=== PATIENT | female | born 1965 | race Caucasian/White ===

== ENCOUNTER 2018-07-19 02:18 | Emergency (ER) | payer MEDICAID ==
[~2018-07-19] VITALS: Ht 180.3 cm; Wt 95.7 kg
[~2018-07-19 02:18] MED LIST: IBU800T
[2018-07-19 02:30] VITALS: BP 100/52
[2018-07-19 04:37] LABS: Basophils # (auto) 0.1 uL; Basophils % (auto) 0.5 % (0.0-2.0); Eosinophils # (auto) 0.1 uL; Hemoglobin 10.8 g/dL (12.2-16.2)
[2018-07-19 04:39] LABS: Eosinophils % (auto) 0.6 % (0.0-7.0); Hematocrit 33.6 % (36.0-46.0); Lymphocytes # (auto) 1.6 uL; Lymphocytes % (auto) 16.4 % (10.0-50.0); Mean Corpuscular Hemoglobin 24.1 pg (28.0-32.0); Mean Corpuscular Hgb Conc. 32.1 g/dL (32.0-36.0); Mean Corpuscular Volume 75.1 fL (80.0-100.0); Monocytes # (auto) 0.7 uL; Monocytes % (auto) 6.9 % (0.0-12.0); Neutrophils # (auto) 7.4 uL; Neutrophils % (auto) 75.6 % (37.0-80.0); Platelet Count (auto) 245 10^3/uL (140-450); Red Blood Cells 4.47 10^6/uL (4.0-5.20); Red Cell Distribution Width 15.7 % (11.8-14.3); White Blood Cell 9.7 10^3/uL (4.4-10.8)
[2018-07-19 04:52] LABS: Albumin 3.6 g/dL (3.4-5.0); Anion Gap 8 (5-15); Blood Urea Nitrogen 14 mg/dL (7-18); Calcium 8.1 mg/dL (8.5-10.1); Carbon Dioxide 24 mmol/L (21-32); Chloride 109 mmol/L (98-107); Glucose 103 mg/dL (74-106); Magnesium 2.4 mg/dL (1.6-2.6); Potassium 3.5 mmol/L (3.5-5.1); Sodium 141 mmol/L (136-145)
[2018-07-19 04:54] LABS: Alanine Aminotransferase 28 U/L (13-56); Aspartate Aminotransferase 20 U/L (15-37); BUN/Creatinine Ratio 16.3; GFR African American 89 mL/min; GFR Non-African American 74 mL/min
[2018-07-19 05:00] LABS: Alkaline Phosphatase 70 U/L (45-117); Bilirubin, Total 0.6 mg/dL (0.2-1.0)
== END 2018-07-19 07:05 | disposition home or self-care (01) ==
LOC: EDBD 02:18 → ER 02:23
DX: R07.89 Other chest pain (principal); I10 Essential (primary) hypertension; M19.90 Unspecified osteoarthritis, unspecified site; Z90.49 Acquired absence of other specified parts of digestive tract; Z88.6 Allergy status to analgesic agent
CPT/HCPCS: 36415; 71046; 80053; 83735; 83880; 84443; 84484; 85025; 93005

== ENCOUNTER 2025-02-17 10:58 | Inpatient (IN) | payer MEDICAID ==
[~2025-02-17] VITALS: Ht 180.3 cm; Wt 130.0 kg
--- NOTE | 2025-02-17 11:07 | ED.PDOC ---
HPI Comments HPI: Initial Vitals BP: HR: RR: O2 Sat: Temp: Past Medical history: Hypertension, hyperlipidemia, Past Surgical history: Cholecystectomy, breast lump resection, Medications: Social History: Denies smoking, ETOH, and drug use. Allergies: NKDA HPI: Poor Historian. 59-year-old female presents to emergency depart for evaluation of left-sided chest pain discomfort pulsating in nature that is intermittent lasts for few minutes and resolved spontaneously. This happens at rest. She has been having this over the course of a week but worse today. Denies any other associated symptoms. Symptoms are nonradiating. Denies any family history of coronary artery disease. REVIEW OF SYSTEMS: CONSTITUTIONAL: Denies acute: fever, diaphoresis, chills, generalized weakness. HEAD: Denies acute: headache, photophobia Eyes: Denies acute: Double vision, vision loss, eye pain, eye discharge. EARS: Denies acute: tinnitus, hearing loss, ear discharge, ear pain, THROAT: Denies acute: sore throat, swelling, difficulty swallowing , pain with swallowing, change in voice. NECK: Denies acute: neck pain, neck swelling, stiff neck. HEART: Denies acute : palpitations, LUNGS: Denies acute: SOB, wheezing, cough, hemoptysis ABDOMEN: Denies acute: abdominal pain, Nausea, Vomiting, diarrhea, melena , hematemesis, hematochezia SKIN: Denies acute: rash, redness, lesions, itchiness. EXTREMITIES: Denies acute: calf pain, numbness, tingling, weakness, denies pain in extremity. Denies acute: Low back pain. Neuro: Denies acute: focal neurological deficit, motor or sensory focal neurological deficit, tremors, seizure like activity, confusion, dizziness, change in mental status, loss of bowel or bladder function, cauda equina like symptoms. : Denies acute: dysuria, hematuria, flank pain, increase in urinary frequency. PSYCH: Denies acute: hallucination, suicidal ideation, homicidal ideation. FEMALE: Denies acute: abnormal vaginal bleeding, foul odor, unusual discharge. PHYSICAL EXAM: General: ---mild-----acute distress, awake and alert. Head: normocephalic, atraumatic. Neck: supple, trachea is midline, no swelling. Throat: Normal phonation. Eyes:, no erythema, no purulent discharge, no proptosis, no icterus. Heart: regular rate, regular rhythm, no significant murmur appreciated. Lungs: no apparent respiratory distress, Able to speak in full sentences. No wheezing, no rhonchi, no crackles. No stridors Clear to auscultation bilaterally. Abdomen: non tender to palpation, non distended, soft, no guarding, no rebound, + bowel sounds. Obese Neuro: Awake, Alert, oriented to name, self, situation, follows commands GCS=15. Speech is normal. Skin: no petechia, no purpura, no cyanosis, non-pale, not jaundice. Lower extremities: --no - Pitting edema no deformity, no focal swelling, no calf TTP. Makes eye contact. moves all four extremities. Face: no apparent facial droop. Ambulating in the ED independently. ED COURSE: DISCLAIMER: This medical document was created using an electronic medical record system with voice recognition software and computerized dictation system. Although this document has been carefully reviewed, there might still be some phonetic and typographical errors. Occasional wrong-word or "sound-alike" substitutions may have occurred due to the inherent limitations of voice recognition software. These areas are purely typographical due to imperfections of the software programs and do not reflect any compromise in the patient's medical care. Please read the chart carefully and recognize, using context, where these substitutions have occurred. Chief Complaint: Chest Pain Time Seen by MD: 11:00 Primary Care Provider: THEA Reviewed Notes: Nurses Notes, Medications, Allergies Allergies: Coded Allergies: Morphine (Verified Allergy, Severe, 03/30/15) SEVERE RASH Home Meds Reported Medications Hydrocodone-Acetaminophen (Hydrocodone Bitartrate/AC 5-325 mg) 1 Tab Tab, 1 TAB PO Q6HP PRN for PAIN SCALE 7 THRU 10, TAB 02/18/25 Atorvastatin Calcium (ATORVASTATIN CALCIUM) 40 Mg Tab, 1 TAB PO HS, #30 TAB 5 Refills 02/18/25 Losartan Potassium (Losartan Potassium) 50 Mg Tab, 50 MG PO DAILY for 30 Days, MG 02/18/25 Tolterodine Tartrate (Tolterodine Tartrate ER) 2 Mg Cap, 1 CAP PO DAILY 02/17/25 Ibuprofen Micronized (Motrin) 800 Mg Tb 04/26/10 Information Source: Patient Mode of Arrival: Ambulatory Past Medical History PAST MEDICAL HISTORY: Arthritis, HTN Surgical History: Cholecystectomy, 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 Was a procedure done?: No CP Differential Dx Differential Diagnosis: N/A Differential Diagnosis: Other (Ddx include but not limitied to gastritis, musculoskeletal pain, radiculopathy, atypical chest pain, dissection, aneurysm, ACS, unstable angina, hiatal hernia, GERD, anxiety, costochondritis, PE, pneumothroax, neoplasm, cardiac ischemia, drug abuse, anemia.) X-Ray, Labs, Meds, VS Vital Signs Date Time Temp Pulse Resp B/P (MAP) Pulse Ox O2 Delivery O2 Flow Rate FiO2 02/17/25 15:30 Room Air* 0 21 02/17/25 15:24 98.0 95 16 137/85 (102) 97 98.0 02/17/25 12:07 91 02/17/25 11:20 95 02/17/25 11:00 98.2 100 18 157/98 94 98.2 02/17/25 10:59 95 Lab Test 02/17/25 14:27 02/17/25 12:29 02/17/25 11:32 02/17/25 11:23 Range/Units Troponin I High Sensitivity < 3 L < 3 L < 3 L </=34 ng/L Thyroid Stimulating Hormone (TSH) 4.01 0.55-4.78 uIU/mL Free Thyroxine (T4) Calculated 1.48 0.89-1.76 ng/dL Hemoglobin A1c 5.5 <5.7 % A1C White Blood Count 6.8 4.4-10.8 10^3/uL Red Blood Count 5.91 H 4.0-5.20 10^6/uL Hemoglobin 17.1 H 12.2-16.2 g/dL Hematocrit 49.1 H 36.0-46.0 % Mean Corpuscular Volume 83.0 80.0-100.0 fL Mean Corpuscular Hemoglobin 28.9 28.0-32.0 pg Mean Corpuscular Hemoglobin Concent 34.8 32.0-36.0 g/dL Red Cell Distribution Width 14.3 11.8-14.3 % Platelet Count 219 140-450 10^3/uL Mean Platelet Volume 9.4 6.9-10.8 fL Neutrophils (%) (Auto) 65.4 37.0-80.0 % Lymphocytes (%) (Auto) 27.6 10.0-50.0 % Monocytes (%) (Auto) 5.5 0.0-12.0 % Eosinophils (%) (Auto) 1.0 0.0-7.0 % Basophils (%) (Auto) 0.5 0.0-2.0 % Neutrophils # (Auto) 4.4 1.6-8.6 10 ^3/uL Lymphocytes # (Auto) 1.9 0.4-5.4 10 ^3/uL Monocytes # (Auto) 0.4 0-1.3 10 ^3/uL Eosinophils # (Auto) 0.1 0-0.8 10 ^3/uL Basophils # (Auto) 0 0-0.2 10 ^3/uL Nucleated Red Blood Cells 0.2 % D-Dimer, Quantitative < 0.19 0.0-0.49 mg/L FEU Sodium Level 141 136-145 mmol/L Potassium Level 4.0 3.5-5.1 mmol/L Chloride Level 103 98-107 mmol/L Carbon Dioxide Level 27 20-31 mmol/L Anion Gap 11 5-15 Blood Urea Nitrogen 19 9-23 mg/dL Creatinine 1.04 H 0.550-1.02 mg/dL Glomerular Filtration Rate Calc 62 >90 mL/min BUN/Creatinine Ratio 18.3 10.0-20.0 Serum Glucose 98 74-106 mg/dL Calcium Level 10.1 8.7-10.4 mg/dL Total Bilirubin 1.0 0.2-1.0 mg/dL Aspartate Amino Transferase (AST) 22 13-40 U/L Alanine Aminotransferase (ALT) 32 7-40 U/L Alkaline Phosphatase 91 46-116 U/L Total Protein 7.8 5.7-8.2 g/dL Albumin 4.9 H 3.2-4.8 g/dL [facility] [id number] [facility] [address] Ph: [phone] DIAGNOSTIC IMAGING Diagnostic Imaging Report : [id number] Signed PATIENT: BAMBI SHEPPARD ACCT: [id number] UNIT: [id number] : 1965 LOC: ER ROOM / BED: / AGE / SEX: 59 / F ADM STATUS: REG ER SERVICE 1107 ORDERING PHYSICIAN: JOVANA DIOP DO PROCEDURE(s): CXRP - CHEST PORTABLE REASON: L CHEST PAIN ORDER NUMBER(s): [id number], ACCESSION NUMBER(s): [id number] EXAM: XY CHEST PORTABLE HISTORY: L CHEST PAIN COMPARISON: None TECHNIQUE: Portable AP view of the chest was performed. FINDINGS: No pneumothorax, consolidative infiltrates, or pulmonary edema. The heart is not enlarged. There is abundant overlying adipose tissue. There is slight thoracic dextroscoliosis. No fractures are identified about the bony thorax. IMPRESSION: Obesity without evidence of acute intrathoracic process. ATED BY: SUDARSHAN ZAMARRIPA MD DICTATED DATE/TIME: 02/17/25 114 SIGNED BY: SUDARSHAN ZAMARRIPA MD SIGNED DATE/TIME: 02/17/25 1145 CC: Time of 1ST Reevaluation: 11:30 Reevaluation 1ST: Unchanged Patient Education/Counseling: Diagnosis, Treatment, Prognosis Family Education/Counseling: No Family Present Comments MDM: patient presented with the above HPI.--chest pain----workup was initiated. patient was found with the above mentioned diagnosis. the following medications were ordered: please refer to order lists of meds and tests obtained by myself Dr. Diop. Patient ED course and VS have been stabilized. Patient has been reassessed in the ED and remained in a stable condition. Pertinent incidental findings were discussed with the patient and/or family. Patient/family voices understanding and is agreeable with plan. Patient has been observed in the ED adequate length of time to insure improvement/stability. Escalation of care considered: Consideration of escalation to observation or admission Patient was ADMITTED to the medicine team for further evaluation and treatment of their presentation. All the reports of any imaging studies that were ordered by myself were reviewed by myself. SEPSIS Sepsis Screen Physician Orders Electrocardigram (02/17/25 11:00) Electrocardigram (02/17/25 11:05) Curve Cleaner (02/17/25 ) Chest Portable (02/17/25 11:07) Vital Signs Date Time Temp Pulse Resp B/P (MAP) Pulse Ox O2 Delivery O2 Flow Rate FiO2 02/17/25 15:30 Room Air* 0 21 02/17/25 15:24 98.0 95 16 137/85 (102) 97 98.0 02/17/25 12:07 91 02/17/25 11:20 95 02/17/25 11:00 98.2 100 18 157/98 94 98.2 02/17/25 10:59 95 Laboratory Tests Test 02/17/25 11:23 White Blood Count 6.8 10^3/uL (4.4-10.8) Departure 1 Departure Time of Disposition: 13:31 Impression: Primary Impression: Chest pain Disposition: ADMITTED INPATIENT Admit to: [facility] Condition: Guarded Discharged With: Self Critical Care Note Critical Care Time?: No Heart Score Heart Score: Heart Score Response (Comments) Value History Moderate Suspicious 1 EKG Normal 0 Age 45-64 1 Risk Factors >3 or Hx ASHD 2 Troponin Normal limit 0 Total 4 I personally scribed for JOVANA DIOP DO ([email or web address]) on 02/17/25 at 11:07. Electronically submitted by Manuel Amador ([employer]). I personally scribed for JOVANA DIOP DO ([email or web address]) on 02/17/25 at 11:20. Electronically submitted by Manuel Amador ([employer]). I personally scribed for JOVANA DIOP DO ([email or web address]) on 02/17/25 at 11:56. Electronically submitted by Manuel Amador ([employer]). JOVANA DIOP DO Feb 17, 2025 11:07
[2025-02-17 11:38] LABS: Hematocrit 49.1 % (36.0-46.0); Hemoglobin 17.1 g/dL (12.2-16.2); Mean Corpuscular Hemoglobin 28.9 pg (28.0-32.0); Mean Corpuscular Volume 83.0 fL (80.0-100.0); Nucleated Red Blood Cells % 0.2 %
--- NOTE | 2025-02-17 11:47 | DVH ---
EXAM: XY CHEST PORTABLE HISTORY: L CHEST PAIN COMPARISON: None TECHNIQUE: Portable AP view of the chest was performed. FINDINGS: No pneumothorax, consolidative infiltrates, or pulmonary edema. The heart is not enlarged. There is a bundant overlying adipose tissue. There is slight thoracic dextroscoliosis. No fractures are identifi ed about the bony thorax. IMPRESSION: Obesity without evidence of acute intrathoracic process.
[2025-02-17 11:49] LABS: Alanine Aminotransferase 32 U/L (7-40); Alkaline Phosphatase 91 U/L (46-116); Anion Gap 11 (5-15); BUN/Creatinine Ratio 18.3 (10.0-20.0); Bilirubin, Total 1.0 mg/dL (0.2-1.0); Blood Urea Nitrogen 19 mg/dL (9-23); Calcium 10.1 mg/dL (8.7-10.4); Carbon Dioxide 27 mmol/L (20-31); Chloride 103 mmol/L (98-107); Glucose 98 mg/dL (74-106); Potassium 4.0 mmol/L (3.5-5.1); Sodium 141 mmol/L (136-145); Total Protein 7.8 g/dL (5.7-8.2)
[2025-02-17 11:52] LABS: Albumin 4.9 g/dL (3.2-4.8)
[2025-02-17] MEDS: ASPirin-EC 325mg tab PO ONE (15:22)
[2025-02-17] MEDS ORDERED: TOLT1CAP26 PO (16:23)
[2025-02-17] MEDS ORDERED: NITROGLYCERIN 0.4 MG SL TAB SL PRN ×2 (16:30)
[2025-02-17] MEDS ORDERED: MORPHINE SULFATE INJ 2 MG/ml SYRG IV PRN (16:30)
[2025-02-17] MEDS ORDERED: MORPHINE SULFATE 4 MG/ML SYR/VIAL IV PRN (16:30)
--- NOTE | 2025-02-17 16:32 | DVHHP2 ---
History of Present Illness Reason for Visit: Chest pain History of Present Illness Vida Zapata is a 51-year-old female with past medical history of hypertension, hyperlipidemia, cholecystectomy, , left breast lump resection, and recent left LCL tear with brace on who presents to the ED with chest pain that started 1 week ago. Patient reports the pain 9/10 pulsating like and intermittent in nature. She states that there are no triggering or alleviating factors. She states that she was at home sitting down at the time when the chest pain started. She reports that she uses a Rollator to ambulate. She also reports that she is compliant with her medications. She denies any recent travels, recent sick contacts, recent ingestion of spoiled food, shortness of breath, fever, chills, lightheadedness, weakness, dizziness, abdominal pain, nausea, vomiting, diarrhea, or urinary symptoms. Cardiovascular: HTN, hyperipidemia Past Medical History Left LCL tear Past Surgical History: Cholecystectomy, , Other (Left breast lump resection) Family History: Other (Dad had a heart attack. Mom had heart failure and status post MVA. Brother had heart attack.) Smoke: No ALCOHOL: none Drugs: None Lives: with Family Domestic Violence: Neg Review of Systems Cardiovascular: Chest Pain Allergies: Coded Allergies: Morphine (Verified Allergy, Severe, 03/30/15) SEVERE RASH Medications Current Medications Medications Dose Ordered Sig/Nixon Route Start Time Stop Time Status Last Admin Dose Admin Aspirin 81 mg DAILY PO 02/18/25 10:00 UNV Atorvastatin Calcium 40 mg HS PO 02/17/25 22:00 UNV Morphine Sulfate 2 mg Q30MP PRN IV 02/17/25 16:30 UNV Acetaminophen 650 mg Q6HP PRN PO 02/17/25 16:30 UNV Lorazepam 0.5 mg Q6HP PRN PO 02/17/25 16:30 UNV Nitroglycerin 0.4 mg Q5MINP PRN SL 02/17/25 16:30 UNV Ondansetron HCl 4 mg Q4HP PRN IV 02/17/25 16:30 UNV Nitroglycerin 0.4 mg Q5MINP PRN SL 02/17/25 16:30 UNV Morphine Sulfate 2 mg Q30M PRN IV 02/17/25 16:30 UNV Exam Vital Signs Vital Signs Date Time Temp Pulse Resp B/P (MAP) Pulse Ox O2 Delivery O2 Flow Rate FiO2 02/17/25 15:30 Room Air* 0 21 02/17/25 15:24 98.0 95 16 137/85 (102) 97 98.0 General Appearance: Alert, Oriented X3, Cooperative HEENT: Atraumatic, PERRLA, EOMI, Mucous membr. moist/pink Respiratory: Clear to auscultation, Normal air movement Cardiovascular: Regular rate, Normal S1, Normal S2, No murmurs Abdominal: Normal bowel sounds, Soft Extremities: No clubbing, No cyanosis Neuro: Normal speech, Normal tone, Sensation intact Psych/Mental Status: Mental status NL, Mood NL Labs/Xrays Labs Test 02/17/25 14:27 02/17/25 11:23 Range/Units Troponin I High Sensitivity < 3 L </=34 ng/L White Blood Count 6.8 4.4-10.8 10^3/uL Red Blood Count 5.91 H 4.0-5.20 10^6/uL Hemoglobin 17.1 H 12.2-16.2 g/dL Hematocrit 49.1 H 36.0-46.0 % Mean Corpuscular Volume 83.0 80.0-100.0 fL Mean Corpuscular Hemoglobin 28.9 28.0-32.0 pg Mean Corpuscular Hemoglobin Concent 34.8 32.0-36.0 g/dL Red Cell Distribution Width 14.3 11.8-14.3 % Platelet Count 219 140-450 10^3/uL Mean Platelet Volume 9.4 6.9-10.8 fL Neutrophils (%) (Auto) 65.4 37.0-80.0 % Lymphocytes (%) (Auto) 27.6 10.0-50.0 % Monocytes (%) (Auto) 5.5 0.0-12.0 % Eosinophils (%) (Auto) 1.0 0.0-7.0 % Basophils (%) (Auto) 0.5 0.0-2.0 % Neutrophils # (Auto) 4.4 1.6-8.6 10 ^3/uL Lymphocytes # (Auto) 1.9 0.4-5.4 10 ^3/uL Monocytes # (Auto) 0.4 0-1.3 10 ^3/uL Eosinophils # (Auto) 0.1 0-0.8 10 ^3/uL Basophils # (Auto) 0 0-0.2 10 ^3/uL Nucleated Red Blood Cells 0.2 % D-Dimer, Quantitative < 0.19 0.0-0.49 mg/L FEU Sodium Level 141 136-145 mmol/L Potassium Level 4.0 3.5-5.1 mmol/L Chloride Level 103 98-107 mmol/L Carbon Dioxide Level 27 20-31 mmol/L Anion Gap 11 5-15 Blood Urea Nitrogen 19 9-23 mg/dL Creatinine 1.04 H 0.550-1.02 mg/dL Glomerular Filtration Rate Calc 62 >90 mL/min BUN/Creatinine Ratio 18.3 10.0-20.0 Serum Glucose 98 74-106 mg/dL Calcium Level 10.1 8.7-10.4 mg/dL Total Bilirubin 1.0 0.2-1.0 mg/dL Aspartate Amino Transferase (AST) 22 13-40 U/L Alanine Aminotransferase (ALT) 32 7-40 U/L Alkaline Phosphatase 91 46-116 U/L Total Protein 7.8 5.7-8.2 g/dL Albumin 4.9 H 3.2-4.8 g/dL EXAM: XY CHEST PORTABLE HISTORY: L CHEST PAIN COMPARISON: None TECHNIQUE: Portable AP view of the chest was performed. FINDINGS: No pneumothorax, consolidative infiltrates, or pulmonary edema. The heart is not enlarged. There is abundant overlying adipose tissue. There is slight thoracic dextroscoliosis. No fractures are identified about the bony thorax. IMPRESSION: Obesity without evidence of acute intrathoracic process. SEPSIS Sepsis Screen Date sepsis recognized/suspect: Feb 17, 2025 Time Sepsis recognized/suspect: 1100 Recent Procedure: No On Antibiotic Therapy: No Respiratory Rate >20: No Heart Rate >90: Yes Temp<36 C (96.8 F) or >38.3 C: No SBP <90 or MAP <65 mmHG: No New Acute Mental Status Change: No Is the patient on CPAP, BIPAP,: No Physician Orders Urinalysis (02/17/25 11:05) Electrocardigram (02/17/25 11:00) Electrocardigram (02/17/25 11:05) Agricultural Extension Specialist (02/17/25 ) Chest Portable (02/17/25 11:07) Admit (02/17/25 16:19) Code Status (02/17/25 16:19) Vital Signs .PER UNIT PROTOCOL (02/17/25 16:19) Agricultural Extension Specialist (02/17/25 16:19) Cardiac Diet-2gna,Lofat,Lochol (02/17/25 Dinner) Aspirin Tablet (02/18/25 10:00) Atorvastatin (Lipitor) (02/17/25 22:00) Morphine Sulfate Injection (02/17/25 16:30) Acetaminophen Tablet (Tylenol Tablet) (02/17/25 16:30) Lorazepam Tablet (Ativan Tablet) (02/17/25 16:30) Complete Blood Count (02/18/25 04:00) Basic Metabolic Panel (02/18/25 04:00) Magnesium (02/18/25 04:00) Lipid Panel (02/18/25 04:00) Echo 2d Mode Cardiac Dop (02/17/25 16:19) Nitroglycerin Sublingual (Ntrostat Subli (02/17/25 16:30) Ondansetron Hcl (Zofran) (02/17/25 16:30) Electrocardigram (02/18/25 04:00) Alum & Mag Hydrox-Simethicone (Maalox Pl (02/17/25 16:30) Troponin-I Hs (02/18/25 04:00) Cardiac Rehabilitation - Outpa (02/17/25 ) Nitroglycerin Sublingual (Ntrostat Subli (02/17/25 16:30) Morphine Sulfate Injection (02/17/25 16:30) Stat Ekg For Chest Pain (02/17/25 16:19) Notify Md Of Changes From Base (02/17/25 16:19) Audio Visual Engineer For 24 Hours (02/17/25 16:19) Emergency Dysrhythmia Protocol (02/17/25 16:19) Rhythm Strips Once Every Shift (02/17/25 16:19) Oxygen By Nasal Cannula (02/17/25 16:19) Thyroid Stimulating Hormone (02/17/25 16:19) Free T4 (Free Thyroxine) (02/17/25 16:19) Urinalysis (02/17/25 16:19) Drug Screen (02/17/25 16:19) Hemoglobin A1c (02/17/25 16:19) (Nf) Tolterodine Tartrate (Tolterodine T (02/18/25 10:00) Losartan Tablet (Cozaar Tablet) (02/18/25 10:00) Hydrochlorothiazide Tablet (Hydrochlorot (02/18/25 10:00) Vital Signs Date Time Temp Pulse Resp B/P (MAP) Pulse Ox O2 Delivery O2 Flow Rate FiO2 02/17/25 15:30 Room Air* 0 21 02/17/25 15:24 98.0 95 16 137/85 (102) 97 98.0 02/17/25 12:07 91 02/17/25 11:20 95 02/17/25 11:00 98.2 100 18 157/98 94 98.2 02/17/25 10:59 95 Laboratory Tests Test 02/17/25 11:23 White Blood Count 6.8 10^3/uL (4.4-10.8) Medications Medications Dose Ordered Sig/Nixon Route Start Time Stop Time Status Last Admin Dose Admin Aspirin 325 mg ONCE ONCE PO 02/17/25 11:15 02/17/25 11:16 DC 02/17/25 15:22 325 MG Assessment/Plan Assessment/Plan Assessment Chest pain rule out ACS Obesity MARYAM likely prerenal History of hypertension History of hyperlipidemia History of cholecystectomy History of History of left breast lump resection Recent left LCL tear with brace on Plan Admit to tele Aspirin + statin Antiemetics Pain management D-dimer noted Chest x-ray noted EKG Troponin noted negative x2 UA Echo ordered TSH Lipid panel UA UDS Free T4 A1c Diet Home medications reconciled DVT prophylaxis-SCDs PUD prophylaxis-PPIs Discussed plan of care with patient and nurse Counseled patient on lifestyle modifications, diet, exercise Patient uses related to ambulate [id number] Preventive counseling healthy eating habits, physical activity, and regular checkups Plan discussed with: Patient My Orders Orders - YADIRA JORDAN LEGAL DOCUMENT ASSISTANT Procedure Category Date Status Time Admit ADMIT 02/17/25 Transmitted 16:19 Code Status CODE 02/17/25 Transmitted 16:19 Vital Signs DEENA 02/17/25 In Process 16:19 Agricultural Extension Specialist DEENA 02/17/25 In Process 16:19 Cardiac DIET 02/17/25 Transmitted Diet-2gna,Lofat,Lochol Dinner Aspirin Tablet PHA 02/18/25 Logged 10:00 Atorvastatin (Lipitor) PHA 02/17/25 Logged 22:00 Morphine Sulfate PHA 02/17/25 Logged Injection 16:30 Acetaminophen Tablet PHA 02/17/25 Logged (Tylenol Tablet) 16:30 Lorazepam Tablet PHA 02/17/25 Logged (Ativan Tablet) 16:30 Complete Blood Count LAB 02/18/25 Verified 04:00 Basic Metabolic Panel LAB 02/18/25 Verified 04:00 Magnesium LAB 02/18/25 Verified 04:00 Lipid Panel LAB 02/18/25 Verified 04:00 Echo 2d Mode Cardiac US 02/17/25 Logged DOP 16:19 Nitroglycerin PHA 02/17/25 Logged Sublingual (Ntrostat 16:30 Ondansetron Hcl PHA 02/17/25 Logged (Zofran) 16:30 Electrocardigram EKG 02/18/25 Logged 04:00 Alum & Mag PHA 02/17/25 Logged Hydrox-Simethicone 16:30 Troponin-I Hs LAB 02/18/25 Verified 04:00 Cardiac DEENA 02/17/25 In Process Rehabilitation - Outpa Nitroglycerin PHA 02/17/25 Logged Sublingual (Ntrostat 16:30 Morphine Sulfate PHA 02/17/25 Logged Injection 16:30 Stat Ekg For Chest DEENA 02/17/25 In Process Pain 16:19 Notify Of Changes [facility] 02/17/25 In Process From Base 16:19 Audio Visual Engineer For [facility] 02/17/25 In Process 24 Hours 16:19 Emergency Dysrhythmia [facility] 02/17/25 In Process Protocol 16:19 Rhythm Strips Once DEENA 02/17/25 In Process Every Shift 16:19 Oxygen By Nasal RT 02/17/25 Transmitted Cannula 16:19 Thyroid Stimulating LAB 02/17/25 Logged Hormone 16:19 Free T4 (Free LAB 02/17/25 Logged Thyroxine) 16:19 Urinalysis LAB 02/17/25 Logged 16:19 Drug Screen LAB 02/17/25 Logged 16:19 Hemoglobin A1c LAB 02/17/25 Logged 16:19 (Nf) Tolterodine PHA 02/18/25 Logged Tartrate (Tolterodine 10:00 Losartan Tablet PHA 02/18/25 Verified (Cozaar Tablet) 10:00 Hydrochlorothiazide PHA 02/18/25 Verified Tablet (Hydrochlorot 10:00 Date of Service: Feb 17, 2025 Billing Provider: YADIRA JORDAN Common Visit Codes: 93616-[id number] INP/OBS CARE (HIGH) Secondary Visit Codes: [id number] COUNSELING IND AYDIRA JORDAN Feb 17, 2025 16:32
[2025-02-17] MEDS: MAALOX PLUS or MAALOX 30 ML PO ONE (17:16)
[2025-02-17 18:00] VITALS: BP 124/71; PULSE 91; RESP 19; TEMP 98; O2SAT 93
[2025-02-17 19:53] LABS: Urine Protein, UAD TRACE (Negative)
[2025-02-17 19:55] LABS: Amphetamine Screen, Urine Neg (NEGATIVE); Barbiturate Scree,Urine Neg (NEGATIVE); Benzodiazephine Screen, Urine Neg (NEGATIVE); Cannabinoid Screen, Urine Neg (NEGATIVE); Cocaine Screen, Urine Neg (NEGATIVE); Opiate Scree,Urine Neg (NEGATIVE); Phencyclidine Screen, Urine Neg (NEGATIVE)
[2025-02-17 21:00] VITALS: BP 140/69; PULSE 89; RESP 17; TEMP 97.7; O2SAT 92
[2025-02-17] MEDS: ATORVASTATIN 20 MG TAB PO SCH (23:17)
[2025-02-17] MEDS: TOLTERODINE TARTRATE 1 MG TAB PO SCH (23:17)
[2025-02-17] MEDS: ACETAMINOPHEN 325 MG TAB PO PRN (23:50)
[2025-02-18] VITALS (8 sets, daily range): BP systolic 111–133; BP diastolic 57–82; PULSE 81–106; RESP 14–20; TEMP 97.4–98.3; O2SAT 91–97
[2025-02-18] MEDS ORDERED: LOSA-534 PO (00:38)
[2025-02-18] MEDS ORDERED: ATOR40TA52 PO (00:38)
[2025-02-18] MEDS ORDERED: HYDR-4902 PO (00:39)
[2025-02-18 07:18] LABS: Hematocrit 43.6 % (36.0-46.0); Hemoglobin 15.3 g/dL (12.2-16.2); Mean Corpuscular Hemoglobin 29.2 pg (28.0-32.0); Mean Corpuscular Volume 83.1 fL (80.0-100.0); Nucleated Red Blood Cells % 0.1 %
[2025-02-18 07:30] LABS: Chloride 103 mmol/L (98-107); Potassium 3.7 mmol/L (3.5-5.1); Sodium 140 mmol/L (136-145)
[2025-02-18 07:31] LABS: Anion Gap 10 (5-15); Calcium 9.4 mg/dL (8.7-10.4); Carbon Dioxide 27 mmol/L (20-31)
[2025-02-18 07:36] LABS: BUN/Creatinine Ratio 21.4 (10.0-20.0); Glucose 90 mg/dL (74-106); Triglycerides 83 mg/dL (< 150)
[2025-02-18 07:37] LABS: Magnesium 2.2 mg/dL (1.6-2.6)
[2025-02-18 07:38] LABS: Cholesterol 167 mg/dL (< 200)
[2025-02-18 07:40] LABS: Blood Urea Nitrogen 25 mg/dL (9-23); HDL Cholesterol 64 mg/dL (40-59)
[2025-02-18] MEDS: LOSARTAN POTASSIUM 50 MG TAB PO SCH (10:00)
[2025-02-18] MEDS: PANTOPRAZOLE 40 MG/10 ML VIAL INJ IV SCH (10:30)
[2025-02-18] MEDS: hydroCHLOROthiazide 25 MG TAB PO SCH (10:31)
[2025-02-18] MEDS: ENOXAPARIN SOD 40 MG/0.4 ML SYRINGE SC SCH (10:31)
[2025-02-18] MEDS: HYDROcodone-ACET 10/325MG TAB PO PRN (14:45)
--- NOTE | 2025-02-18 15:09 | DVHSR ---
APPROVED REPORT EXAM: LIMITED Two-dimensional and M-mode echocardiogram with Doppler and color Doppler. Blood Pressure: 131/82 mmHg INDICATION Chest Pain RISK FACTORS Obesity: Height: 5' 11", Weight: 278 DIMENSIONS LVDd4.3 (3.8-5.7cm)LA (2D)4.0 (1.9-4.0cm)Aortic Root3.3 (2.0-3.7cm) LVDs3.0 (2.5-4.0cm)LA (MM) (1.9-4.0cm)Aortic Cusp Exc1.6 (1.5-2.0cm) EF (%) 55.5 (55-70%)Rt. Atrium4.1 (1.9-4.0cm)Asc. Aorta cm IVSd1.1 (0.7-1.1cm)RV (D) (1.8-2.4cm) PWd0.9 (0.7-1.1cm) Mitral Valve MitralMitral Stenosis E wave0.70m/sMV Mean GR.mmHg A wave1.00m/sMV Peak GR.mmHg E/A ratio0.72D MVAcm2 Aortic Valve Aortic ValveAortic Stenosis V11.20m/Jam Mean GR.4mmHg V21.30m/Jam Peak GR.7mmHg LVOT Diameter2.4 (1.8-2.4cm)Doppler AVA4.17cm2 Pulmonic Valve V20.80m/s Other Information Quality : Technically LimitedRhythm : Technically limited study due to body habitus. Conclusion Technically difficult study. Difficult acoustic windows. Biatrial enlargement. Concentric LVH. Valves are normal. EF of 60% with normal RV function. Dopplers unremarkable. No pericardial effusion masses or vegetations.
--- NOTE | 2025-02-18 18:08 | DVHPN2 ---
Subjective Patient is currently denies any chest pain. 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 Medications Current Medications Medications Dose Ordered Sig/Nixon Route Start Time Stop Time Status Last Admin Dose Admin Aspirin 81 mg DAILY PO 02/18/25 10:00 02/18/25 10:31 81 MG Atorvastatin Calcium 40 mg HS PO 02/17/25 22:00 02/17/25 23:17 40 MG Morphine Sulfate 2 mg Q30MP PRN IV 02/17/25 16:30 UNV Acetaminophen 650 mg Q6HP PRN PO 02/17/25 16:30 02/18/25 05:40 650 MG Lorazepam 0.5 mg Q6HP PRN PO 02/17/25 16:30 Nitroglycerin 0.4 mg Q5MINP PRN SL 02/17/25 16:30 UNV Ondansetron HCl 4 mg Q4HP PRN IV 02/17/25 16:30 Nitroglycerin 0.4 mg Q5MINP PRN SL 02/17/25 16:30 Morphine Sulfate 2 mg Q30M PRN IV 02/17/25 16:30 UNV Tolterodine Tartrate 1 mg BID PO 02/17/25 22:00 02/18/25 10:31 1 MG Losartan Potassium 50 mg DAILY PO 02/18/25 10:00 02/18/25 10:00 50 MG Hydrochlorothiazide 12.5 mg DAILY PO 02/18/25 10:00 02/18/25 10:31 12.5 MG Pantoprazole Sodium 40 mg DAILY IV 02/18/25 10:00 02/18/25 10:30 40 MG Enoxaparin Sodium 40 mg DAILY SC 02/18/25 10:00 02/18/25 10:31 40 MG Acetaminophen/ Hydrocodone Bitart 1 tab Q6HP PRN PO 02/18/25 14:20 02/18/25 14:45 1 TAB Laboratory Results Laboratory Tests 02/18/25 04:34 Chemistry Test 02/18/25 04:34 Calcium Level 9.4 mg/dL (8.7-10.4) Magnesium Level 2.2 mg/dL (1.6-2.6) Lipid panel Test 02/18/25 04:34 Cholesterol Level 167 mg/dL (< 200) HDL Cholesterol 64 mg/dL (40-59) H Triglycerides Level 83 mg/dL (< 150) Urinalysis Test 02/17/25 17:00 Urine Color Yellow (Yellow) Urine Clarity Turbid (Clear) H Urine pH 5.5 (5.0-9.0) Urine Specific [place] 1.026 (1.001-1.035) Urine Protein Trace (Negative) H Urine Ketones Negative (Negative) Urine Blood Negative /uL (Negative) Urine Nitrite Negative (Negative) Urine Bilirubin Negative (Negative) Urine Urobilinogen Normal mg/dL (Negative) Urine Leukocyte Esterase 3+ /uL (Negative) Urine RBC 4 /hpf (0 - 4) Urine Microscopic WBC 33 /HPF (0-5) H Urine Squamous Epithelial Cells Few /hpf (<5) Urine Bacteria Few /hpf (None Seen) H Urine Hyaline Casts Many /lpf (0 - 2) Urine Mucus Few (None Seen) Urine Glucose Normal mg/dL (Normal) Assessment/Plan Assessment/Plan 59-year-old female with a known history of hypertension, dyslipidemia, morbid obesity classII, who initially presented to the hospital with the chest pain on and off for last few days found to have 1. Chest pain rule out [place] 2. Hypertension controlled 3. Dyslipidemia 4. Morbid obesity classII -aspirin, statin, 2D echo cardiology consultation, patient's may need cardiac workup if recommended by Cardiology. Plan discussed with: Patient My Orders Orders - BLAINE SAMS MD Procedure Category Date Status Time Hydrocodone-Acet PHA 02/18/25 In Process 10/325mg Tab ([place] 14:20 * Cardiology Consult CONS 02/18/25 Transmitted 16:02 Date of Service: Feb 18, 2025 Billing Provider: BLAINE SAMS MD Common Visit Codes: [id number] INP/OBS CARE(MOD) BLAINE SAMS MD Feb 18, 2025 18:08
[2025-02-19] VITALS (8 sets, daily range): BP systolic 105–145; BP diastolic 65–90; PULSE 60–100; RESP 14–18; TEMP 97.7–98.4; O2SAT 93–99
--- NOTE | 2025-02-19 11:53 | DVHINCON2 ---
Date Seen: Feb 19, 2025 Referring Physician Naomie Reason for Consultation Chest Pain History of Present Illness 59-year-old female with PMH for HTN, HLD, cholecystectomy, left breast lump resection, and recent left LCL tear with knee brace presents to the hospital with chest pain. Patient endorses pain has been happening on and off intermittently for the last 1 week. Chest pain left-sided, at times radiating up to her left shoulder, at times feels cramping in nature other times feels dull pressure. No change with exertion. She also diff states that it comes and goes and at times feels like her heart is pounding hard. No history of arrhythmias. Patient endorses that she has had a history of hypertension though was not taking her meds for a while. Does have a past history of amphetamine use though quit a long time ago per patient. Patient does endorse having a strong family cardiac history with father having multiple heart attacks and needing stents as early as mid 40s. Troponins negative x3. EKG reviewed and shows sinus rhythm at 83 beats per minute, no acute ST and T- wave abnormality noted. Past Medical History As stated above Past Surgical History Denies previous cardiac surgeries Family History: Cardiovascular disease G8 MOTHER G8 FATHER Diabetes mellitus G8 FATHER Family History Endorses father had multiple stents, MIs at early age starting in his mid 40s. Social History Denies any tobacco or illicit drug use. Does endorse occasional social. Drinking rarely. Also endorses she use to do amphetamines at a younger age. Allergies: Coded Allergies: Morphine (Verified Allergy, Severe, 03/30/15) SEVERE RASH Home Meds Reported Medications Hydrocodone-Acetaminophen (Hydrocodone Bitartrate/AC 5-325 mg) 1 Tab Tab, 1 TAB PO Q6HP PRN for PAIN SCALE 7 THRU 10, TAB 02/18/25 Atorvastatin Calcium (ATORVASTATIN CALCIUM) 40 Mg Tab, 1 TAB PO HS, #30 TAB 5 Refills 02/18/25 Losartan Potassium (Losartan Potassium) 50 Mg Tab, 50 MG PO DAILY for 30 Days, MG 02/18/25 Tolterodine Tartrate (Tolterodine Tartrate ER) 2 Mg Cap, 1 CAP PO DAILY 02/17/25 Ibuprofen Micronized (Motrin) 800 Mg Tb 04/26/10 Current Medications Current Medications Medications (Trade) Dose Ordered Sig/Nixon Route PRN Reason Start Time Stop Time Status Last Admin Acetaminophen/ Hydrocodone Bitart ([place] 10/325MG Tab) 1 tab Q6HP PRN PO MODERATE PAIN (4-6 PAIN SCALE) 02/18/25 14:20 02/19/25 10:40 Review of Systems Constitutional: No: Fever, Chills, Sweats, Weakness, Malaise, Other Eyes: No: Pain, Vision change, Conjunctivae inflammation, Eyelid inflammation, Other, Redness ENT: No: Ear pain, Ear discharge, Nose pain, Nose discharge, Nose congestion, Mouth pain, Mouth swelling, Throat pain, Throat swelling, Other Respiratory: No: Cough, Dry, Shortness of breath, SOB with exertion, Wheezing, Hemoptysis, Pleuritic Pain, Sputum, Wheezing, Other Cardiovascular: ; No: Chest Pain Palpitations, Orthopnea, Paroxysmal Noc. Dyspnea, Edema, Lt Headedness, Other Gastrointestinal: No: Nausea, Vomiting, Abdominal Pain, Diarrhea, Constipation, Melena, Hematochezia, Other Genitourinary: No Dysuria, No Frequency, No Incontinence, No Hematuria, No Retention, No Other Musculoskeletal: neck pain; No: other, shoulder pain, arm pain, back pain, hand pain, leg/knee pain foot pain Skin: No: Rash, Lesions, Jaundice, Bruising, Other Neurological: Other (Dizziness, headache.); No: Weakness, Numbness, Incoordination, Change in speech, Confusion, Seizures Vital Signs Vital Signs Date Time Temp Pulse Resp B/P (MAP) Pulse Ox O2 Delivery O2 Flow Rate FiO2 02/19/25 10:27 135/90 02/19/25 09:36 97.8 75 14 97 97.8 02/19/25 08:00 Room Air* 0 21 Physical Exam General appearance: Patient is well-developed, well-nourished, in no acute distress. HEENT: Exam shows: Normocephalic, atraumatic, PERRLA, EOMI Neck: Supple, no bruits Chest: Equal chest excursion bilaterally. Breath sounds normal-no rales or wheezes. Heart: Rhythm: Regular rate; no murmur or gallop Abdomen: Exam shows: Soft, nontender, nondistended Musculoskeletal: No clubbing, no cyanosis, no lower extremity edema Dermatology: Skin warm, moist. Neurological: Exam shows: Alert and oriented x4, normal speech Available prior records, labs, EKG, rhythm strips reviewed and interpreted Labs/Diagnostic Data Labs Test 02/18/25 04:34 02/17/25 17:00 02/17/25 14:27 02/17/25 11:32 Range/Units White Blood Count 4.8 # 4.4-10.8 10^3/uL Red Blood Count 5.24 H 4.0-5.20 10^6/uL Hemoglobin 15.3 12.2-16.2 g/dL Hematocrit 43.6 # 36.0-46.0 % Mean Corpuscular Volume 83.1 80.0-100.0 fL Mean Corpuscular Hemoglobin 29.2 28.0-32.0 pg Mean Corpuscular Hemoglobin Concent 35.1 32.0-36.0 g/dL Red Cell Distribution Width 14.3 11.8-14.3 % Platelet Count 181 140-450 10^3/uL Mean Platelet Volume 10.1 6.9-10.8 fL Neutrophils (%) (Auto) 60.8 37.0-80.0 % Lymphocytes (%) (Auto) 29.5 10.0-50.0 % Monocytes (%) (Auto) 8.1 0.0-12.0 % Eosinophils (%) (Auto) 1.1 0.0-7.0 % Basophils (%) (Auto) 0.5 0.0-2.0 % Neutrophils # (Auto) 2.9 1.6-8.6 10 ^3/uL Lymphocytes # (Auto) 1.4 0.4-5.4 10 ^3/uL Monocytes # (Auto) 0.4 0-1.3 10 ^3/uL Eosinophils # (Auto) 0.1 0-0.8 10 ^3/uL Basophils # (Auto) 0 0-0.2 10 ^3/uL Nucleated Red Blood Cells 0.1 % Sodium Level 140 136-145 mmol/L Potassium Level 3.7 3.5-5.1 mmol/L Chloride Level 103 98-107 mmol/L Carbon Dioxide Level 27 20-31 mmol/L Anion Gap 10 5-15 Blood Urea Nitrogen 25 H 9-23 mg/dL Creatinine 1.17 H 0.550-1.02 mg/dL Glomerular Filtration Rate Calc 54 >90 mL/min BUN/Creatinine Ratio 21.4 H 10.0-20.0 Serum Glucose 90 74-106 mg/dL Calcium Level 9.4 8.7-10.4 mg/dL Magnesium Level 2.2 1.6-2.6 mg/dL Troponin I High Sensitivity < 3 L </=34 ng/L Triglycerides Level 83 < 150 mg/dL Cholesterol Level 167 < 200 mg/dL LDL Cholesterol 92 < 100 mg/dL HDL Cholesterol 64 H 40-59 mg/dL Urine Color Yellow Yellow Urine Clarity Turbid H Clear Urine pH 5.5 5.0-9.0 Urine Specific [place] 1.026 1.001-1.035 Urine Protein Trace H Negative Urine Ketones Negative Negative Urine Blood Negative Negative /uL Urine Nitrite Negative Negative Urine Bilirubin Negative Negative Urine Urobilinogen Normal Negative mg/dL Urine Leukocyte Esterase 3+ Negative /uL Urine RBC 4 0 - 4 /hpf Urine Microscopic WBC 33 H 0-5 /HPF Urine Squamous Epithelial Cells Few <5 /hpf Urine Bacteria Few H None Seen /hpf Urine Hyaline Casts Many 0 - 2 /lpf Urine Mucus Few None Seen Urine Glucose Normal Normal mg/dL Urine Opiates Screen Neg NEGATIVE Urine Fentanyl Screen Pos NEGATIVE Urine Barbiturates Screen Neg NEGATIVE Urine Phencyclidine Screen Neg NEGATIVE Urine Amphetamines Screen Neg NEGATIVE Urine Benzodiazepines Screen Neg NEGATIVE Urine Cocaine Screen Neg NEGATIVE Urine Cannabinoids Screen Neg NEGATIVE Thyroid Stimulating Hormone (TSH) 4.01 0.55-4.78 uIU/mL Free Thyroxine (T4) Calculated 1.48 0.89-1.76 ng/dL Hemoglobin A1c 5.5 <5.7 % A1C Test 02/17/25 11:23 Range/Units D-Dimer, Quantitative < 0.19 0.0-0.49 mg/L FEU Total Bilirubin 1.0 0.2-1.0 mg/dL Aspartate Amino Transferase (AST) 22 13-40 U/L Alanine Aminotransferase (ALT) 32 7-40 U/L Alkaline Phosphatase 91 46-116 U/L Total Protein 7.8 5.7-8.2 g/dL Albumin 4.9 H 3.2-4.8 g/dL Assessment * Chest Pain - atypical. Troponins negative. EKG negative for acute ST abnormalities. Given history of HLD HTN and significant family cardiac history recommend ischemic eval with stress test. We will plan for Génesis stress in a.m. as patient unable to walk due to recent left LCL tear. Echocardiogram showing normal LVEF 60%, no significant valvular structural abnormalities noted. Continue aspirin and statin. * Palpiations - continue telemetry monitoring. Recommend outpatient cardiology follow up for event monitoring. * HTN - BP stable on current regimen, continue monitoring. Case Discussed with Dr Leon. Plan as above Critical care, time spent: 40 minutes This medical document was created using an electronic medical record system with voice recognition software and computerized dictation system. Although this document has been carefully reviewed, there might still be some phonetic and typographical errors. Occasional wrong-word or ``sound-alike substitutions may have occurred due to the inherent limitations of voice recognition software. These areas are purely typographical due to imperfections of the software programs and do not reflect any compromise in the patient's medical care. Please read the chart carefully and recognize, using context, where these substitutions have occurred. Thank you for allowing me to participate in the management of this patient. The treatment plan was discussed with and agreed upon by patient/family including requesting consultants and ordering of imaging/procedures. Plan discussed with: Patient NYHA Physical activity limitations: Class2(Slight)fatigue,sob Date of Service: Feb 19, 2025 Billing Provider: MAURO CATALAN Cardiology Common Codes: [id number] INP/OBS CARE (High), [id number] CARE 30-74 MIN MAURO CATALAN Feb 19, 2025 11:53
[2025-02-19] MEDS: ONDANSETRON HCL 4 MG/2 ML VIAL IV PRN (14:38)
--- NOTE | 2025-02-19 17:50 | DVHPN2 ---
Subjective Patient is currently denies any chest pain. But does complain of some nausea. 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 Medications Current Medications Medications Dose Ordered Sig/Nixon Route Start Time Stop Time Status Last Admin Dose Admin Aspirin 81 mg DAILY PO 02/18/25 10:00 02/19/25 10:26 81 MG Atorvastatin Calcium 40 mg HS PO 02/17/25 22:00 02/18/25 21:03 40 MG Morphine Sulfate 2 mg Q30MP PRN IV 02/17/25 16:30 UNV Acetaminophen 650 mg Q6HP PRN PO 02/17/25 16:30 02/18/25 05:40 650 MG Lorazepam 0.5 mg Q6HP PRN PO 02/17/25 16:30 Nitroglycerin 0.4 mg Q5MINP PRN SL 02/17/25 16:30 UNV Ondansetron HCl 4 mg Q4HP PRN IV 02/17/25 16:30 02/19/25 14:38 4 MG Nitroglycerin 0.4 mg Q5MINP PRN SL 02/17/25 16:30 Morphine Sulfate 2 mg Q30M PRN IV 02/17/25 16:30 UNV Tolterodine Tartrate 1 mg BID PO 02/17/25 22:00 02/19/25 10:27 1 MG Losartan Potassium 50 mg DAILY PO 02/18/25 10:00 02/19/25 10:27 50 MG Hydrochlorothiazide 12.5 mg DAILY PO 02/18/25 10:00 02/19/25 10:27 12.5 MG Pantoprazole Sodium 40 mg DAILY IV 02/18/25 10:00 02/19/25 10:27 40 MG Enoxaparin Sodium 40 mg DAILY SC 02/18/25 10:00 02/19/25 10:26 40 MG Acetaminophen/ Hydrocodone Bitart 1 tab Q6HP PRN PO 02/18/25 14:20 02/19/25 10:40 1 TAB Laboratory Results Laboratory Tests 02/18/25 04:34 Urinalysis Test 02/17/25 17:00 Urine Color Yellow (Yellow) Urine Clarity Turbid (Clear) H Urine pH 5.5 (5.0-9.0) Urine Specific [place] 1.026 (1.001-1.035) Urine Protein Trace (Negative) H Urine Ketones Negative (Negative) Urine Blood Negative /uL (Negative) Urine Nitrite Negative (Negative) Urine Bilirubin Negative (Negative) Urine Urobilinogen Normal mg/dL (Negative) Urine Leukocyte Esterase 3+ /uL (Negative) Urine RBC 4 /hpf (0 - 4) Urine Microscopic WBC 33 /HPF (0-5) H Urine Squamous Epithelial Cells Few /hpf (<5) Urine Bacteria Few /hpf (None Seen) H Urine Hyaline Casts Many /lpf (0 - 2) Urine Mucus Few (None Seen) Urine Glucose Normal mg/dL (Normal) Assessment/Plan Assessment/Plan 59-year-old female with a known history of hypertension, dyslipidemia, morbid obesity classII, who initially presented to the hospital with the chest pain on and off for last few days found to have 1. Chest pain rule out [place] 2. Hypertension controlled 3. Dyslipidemia 4. Morbid obesity classII -aspirin, statin, 2D echo cardiology consultation, patient's may need cardiac workup if recommended by Cardiology. Plan discussed with: Patient Date of Service: Feb 19, 2025 Billing Provider: BLAINE SAMS MD Common Visit Codes: [id number] INP/OBS CARE(MOD) BLAINE SAMS MD Feb 19, 2025 17:50
[2025-02-20] VITALS (8 sets, daily range): BP systolic 121–139; BP diastolic 62–77; PULSE 75–83; RESP 18–20; TEMP 97.3–98.1; O2SAT 92–100
--- NOTE | 2025-02-20 13:24 | ECG ---
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
--- NOTE | 2025-02-20 14:23 | DVHPN2 ---
Consult Progress Note Date Seen: Feb 20, 2025 Subjective Review of Systems: CVS:Normal, RESPIRATORY:Normal, NEURO:Normal Objective vital signs Vital Sign Date Time Temp Pulse Resp B/P (MAP) Pulse Ox O2 Delivery O2 Flow Rate FiO2 02/20/25 13:00 97.5 78 19 130/72 (91) 93 97.5 02/20/25 08:00 Room Air* 0 21 Total Intake and Output 02/19/25 02/19/25 02/20/25 15:00 23:00 07:00 Intake Total 500 ml 900 ml 400 ml Balance 500 ml 900 ml 400 ml medications Current Medications Medications Dose Ordered Sig/Nixon Route Start Time Stop Time Status Last Admin Dose Admin Aspirin 81 mg DAILY PO 02/18/25 10:00 02/20/25 08:55 81 MG Atorvastatin Calcium 40 mg HS PO 02/17/25 22:00 02/19/25 21:37 40 MG Morphine Sulfate 2 mg Q30MP PRN IV 02/17/25 16:30 UNV Acetaminophen 650 mg Q6HP PRN PO 02/17/25 16:30 02/20/25 05:27 650 MG Lorazepam 0.5 mg Q6HP PRN PO 02/17/25 16:30 Nitroglycerin 0.4 mg Q5MINP PRN SL 02/17/25 16:30 UNV Ondansetron HCl 4 mg Q4HP PRN IV 02/17/25 16:30 02/20/25 10:47 4 MG Nitroglycerin 0.4 mg Q5MINP PRN SL 02/17/25 16:30 Morphine Sulfate 2 mg Q30M PRN IV 02/17/25 16:30 UNV Tolterodine Tartrate 1 mg BID PO 02/17/25 22:00 02/20/25 10:47 1 MG Losartan Potassium 50 mg DAILY PO 02/18/25 10:00 02/20/25 08:56 50 MG Hydrochlorothiazide 12.5 mg DAILY PO 02/18/25 10:00 02/20/25 08:56 12.5 MG Pantoprazole Sodium 40 mg DAILY IV 02/18/25 10:00 02/20/25 08:55 40 MG Enoxaparin Sodium 40 mg DAILY SC 02/18/25 10:00 02/20/25 08:56 40 MG Acetaminophen/ Hydrocodone Bitart 1 tab Q6HP PRN PO 02/18/25 14:20 02/20/25 10:47 1 TAB Examination: LUNGS:Normal, CVS:Normal, NEURO:Normal laboratory and microbiology Laboratory Tests 02/18/25 04:34 Test 02/18/25 04:34 Range/Units Serum Glucose 90 74-106 mg/dL Problem List/Assessment/Plan Problem List/Assessment/Plan (Dr. Leon) * Chest Pain - non-cardiac. Troponins negative. EKG negative for acute ST abnormalities. Given history of HLD HTN and significant family cardiac history recommend ischemic evaluation with stress test. We will plan for Génesis stress in a.m. as patient unable to walk due to recent left LCL tear. Echocardiogram showing normal LVEF 60%, no significant valvular structural abnormalities noted. Continue aspirin and statin. * Palpiations - continue telemetry monitoring. Recommend outpatient cardiology follow up for event monitoring. * HTN - BP stable on current regimen, continue monitoring. Thank you for allowing me to participate in the management of this patient. This medical document was created using an electronic medical record system with voice recognition software and computerized dictation system. Although this document has been carefully reviewed, there might still be some phonetic and typographical errors. Occasional wrong-word or ``sound-alike substitutions may have occurred due to the inherent limitations of voice recognition software. These areas are purely typographical due to imperfections of the software programs and do not reflect any compromise in the patient's medical care. Please read the chart carefully and recognize, using context, where these substitutions have occurred. Plan discussed with: Patient, Other Date of Service: Feb 20, 2025 Billing Provider: ARABELLA MARKS Cardiology Common Codes: [id number] HOSP CARE(High ARABELLA MARKS Feb 20, 2025 14:23
--- NOTE | 2025-02-20 17:50 | DVHPN2 ---
Subjective Patient is scheduled for Lexiscan tomorrow morning. 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 Medications Current Medications Medications Dose Ordered Sig/Nixon Route Start Time Stop Time Status Last Admin Dose Admin Aspirin 81 mg DAILY PO 02/18/25 10:00 02/20/25 08:55 81 MG Atorvastatin Calcium 40 mg HS PO 02/17/25 22:00 02/19/25 21:37 40 MG Morphine Sulfate 2 mg Q30MP PRN IV 02/17/25 16:30 UNV Acetaminophen 650 mg Q6HP PRN PO 02/17/25 16:30 02/20/25 05:27 650 MG Lorazepam 0.5 mg Q6HP PRN PO 02/17/25 16:30 Nitroglycerin 0.4 mg Q5MINP PRN SL 02/17/25 16:30 UNV Ondansetron HCl 4 mg Q4HP PRN IV 02/17/25 16:30 02/20/25 10:47 4 MG Nitroglycerin 0.4 mg Q5MINP PRN SL 02/17/25 16:30 Morphine Sulfate 2 mg Q30M PRN IV 02/17/25 16:30 UNV Tolterodine Tartrate 1 mg BID PO 02/17/25 22:00 02/20/25 10:47 1 MG Losartan Potassium 50 mg DAILY PO 02/18/25 10:00 02/20/25 08:56 50 MG Hydrochlorothiazide 12.5 mg DAILY PO 02/18/25 10:00 02/20/25 08:56 12.5 MG Pantoprazole Sodium 40 mg DAILY IV 02/18/25 10:00 02/20/25 08:55 40 MG Enoxaparin Sodium 40 mg DAILY SC 02/18/25 10:00 02/20/25 08:56 40 MG Acetaminophen/ Hydrocodone Bitart 1 tab Q6HP PRN PO 02/18/25 14:20 02/20/25 10:47 1 TAB Laboratory Results Laboratory Tests 02/18/25 04:34 Urinalysis Test 02/17/25 17:00 Urine Color Yellow (Yellow) Urine Clarity Turbid (Clear) H Urine pH 5.5 (5.0-9.0) Urine Specific [place] 1.026 (1.001-1.035) Urine Protein Trace (Negative) H Urine Ketones Negative (Negative) Urine Blood Negative /uL (Negative) Urine Nitrite Negative (Negative) Urine Bilirubin Negative (Negative) Urine Urobilinogen Normal mg/dL (Negative) Urine Leukocyte Esterase 3+ /uL (Negative) Urine RBC 4 /hpf (0 - 4) Urine Microscopic WBC 33 /HPF (0-5) H Urine Squamous Epithelial Cells Few /hpf (<5) Urine Bacteria Few /hpf (None Seen) H Urine Hyaline Casts Many /lpf (0 - 2) Urine Mucus Few (None Seen) Urine Glucose Normal mg/dL (Normal) Assessment/Plan Assessment/Plan 59-year-old female with a known history of hypertension, dyslipidemia, morbid obesity classII, who initially presented to the hospital with the chest pain on and off for last few days found to have 1. Chest pain rule out [place] 2. Hypertension controlled 3. Dyslipidemia 4. Morbid obesity classII -aspirin, statin, 2D echo cardiology consultation, patient's may need cardiac workup if recommended by Cardiology. Plan discussed with: Patient Date of Service: Feb 20, 2025 Billing Provider: BLAINE SAMS MD Common Visit Codes: [id number] INP/OBS CARE(MOD) BLAINE SAMS MD Feb 20, 2025 17:50
[2025-02-21] VITALS (7 sets, daily range): BP systolic 100–153; BP diastolic 64–93; PULSE 66–96; RESP 18–19; TEMP 96.3–98.4; O2SAT 93–98
[2025-02-21] MEDS: REGADENOSON 0.4 MG/5 ML SYRG IV ONE ×3 (07:13→10:42)
--- NOTE | 2025-02-21 11:00 | ECG ---
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
[2025-02-21] MEDS: LORazepam 0.5 MG TAB PO PRN (13:32)
--- NOTE | 2025-02-21 18:33 | DVHPN2 ---
Subjective Patient underwent Lexiscan, currently report is pending. Patient is still complaining of some chest pain I told her it might be just costochondritis on or musculoskeletal chest pain. 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 Medications Current Medications Medications Dose Ordered Sig/Nixon Route Start Time Stop Time Status Last Admin Dose Admin Aspirin 81 mg DAILY PO 02/18/25 10:00 02/21/25 13:26 81 MG Atorvastatin Calcium 40 mg HS PO 02/17/25 22:00 02/20/25 21:53 40 MG Morphine Sulfate 2 mg Q30MP PRN IV 02/17/25 16:30 UNV Acetaminophen 650 mg Q6HP PRN PO 02/17/25 16:30 02/20/25 05:27 650 MG Lorazepam 0.5 mg Q6HP PRN PO 02/17/25 16:30 02/21/25 13:32 0.5 MG Nitroglycerin 0.4 mg Q5MINP PRN SL 02/17/25 16:30 UNV Ondansetron HCl 4 mg Q4HP PRN IV 02/17/25 16:30 02/21/25 13:32 4 MG Nitroglycerin 0.4 mg Q5MINP PRN SL 02/17/25 16:30 Morphine Sulfate 2 mg Q30M PRN IV 02/17/25 16:30 UNV Tolterodine Tartrate 1 mg BID PO 02/17/25 22:00 02/20/25 21:53 1 MG Losartan Potassium 50 mg DAILY PO 02/18/25 10:00 02/21/25 13:26 50 MG Hydrochlorothiazide 12.5 mg DAILY PO 02/18/25 10:00 02/21/25 13:27 12.5 MG Pantoprazole Sodium 40 mg DAILY IV 02/18/25 10:00 02/21/25 13:26 40 MG Enoxaparin Sodium 40 mg DAILY SC 02/18/25 10:00 02/21/25 13:27 40 MG Acetaminophen/ Hydrocodone Bitart 1 tab Q6HP PRN PO 02/18/25 14:20 02/21/25 13:33 1 TAB Laboratory Results Laboratory Tests 02/18/25 04:34 Urinalysis Test 02/17/25 17:00 Urine Color Yellow (Yellow) Urine Clarity Turbid (Clear) H Urine pH 5.5 (5.0-9.0) Urine Specific [place] 1.026 (1.001-1.035) Urine Protein Trace (Negative) H Urine Ketones Negative (Negative) Urine Blood Negative /uL (Negative) Urine Nitrite Negative (Negative) Urine Bilirubin Negative (Negative) Urine Urobilinogen Normal mg/dL (Negative) Urine Leukocyte Esterase 3+ /uL (Negative) Urine RBC 4 /hpf (0 - 4) Urine Microscopic WBC 33 /HPF (0-5) H Urine Squamous Epithelial Cells Few /hpf (<5) Urine Bacteria Few /hpf (None Seen) H Urine Hyaline Casts Many /lpf (0 - 2) Urine Mucus Few (None Seen) Urine Glucose Normal mg/dL (Normal) Assessment/Plan Assessment/Plan 59-year-old female with a known history of hypertension, dyslipidemia, morbid obesity classII, who initially presented to the hospital with the chest pain on and off for last few days found to have 1. Chest pain ruled out [place] 2. Hypertension controlled 3. Dyslipidemia 4. Morbid obesity classII -aspirin, statin, follow up Lexiscan report, discharge plan. Plan discussed with: Patient Date of Service: Feb 21, 2025 Billing Provider: BLAINE SAMS MD Common Visit Codes: [id number] INP/OBS CARE(MOD) BLAINE SAMS MD Feb 21, 2025 18:33
[2025-02-21] MEDS: DOCUSATE SOD 100 MG CAP PO PRN (21:56)
[2025-02-22] VITALS (7 sets, daily range): BP systolic 105–145; BP diastolic 62–95; PULSE 74–79; RESP 16–18; TEMP 96.7–98.8; O2SAT 91–98
--- NOTE | 2025-02-22 07:43 | DVHSR ---
APPROVED REPORT Exam: Nuclear Stress Test Indication: Chest Pain BMI: 0 Medical History Medical History: HTN Allergies: Morphine Stress Test Details Stress Test: Pharmacologic stress testing performed using 0.4 mg of regadenoson per 5 mL given IV ov er 10 seconds. HR Resting HR: 86 bpmMax Heart Rate (APMHR): 162.887856 bpm Max HR Achieved: 116 bpmTarget HR (85% APMHR): 137.699158 bpm % of APMHR: 71.60 Recovery HR: 99 bpm BP Resting BP: 146/84 mmHg Recovery BP: 148/76 mmHg ECG Resting ECG: Sinus Rhythm Clinical Reason for Termination: Completed protocol Nurse Comments Recieved pt. from [email or web address]. A/Ox4 on RA. Connected to clinical research monitor, VS stable. PIV flushes well. Reviewed POC. Pt. verbalized understanding of procedure including risks and side ef fects, agrees for stress testing. Lexiscan stress test performed per protocol. [place] administered Cardiolite. Pt. tolerated well . Pt. stable, no change on exam. VS returned to baseline. Transferred to [email or web address] via wheelchair w/ te ch. Stress ECG Conclusion lvef 67% normal perfusions can no ischemia NM EXAM: Myocardial Perfusion REST/STRESS Imaging Protocol: Rest Tc-99m/Stress Tc-99m 1 day Resting Data Rest SPECT myocardial perfusion imaging was performed in supine position 60 minutes following the int ravenous injection of 11.3 mCi of Tc-99m Sestamibi. Time of rest injection: 0755 Time of rest imagin Administration Route: IV Administration Site: Left AC Pharmacologic Stress Pharmacologic stress test was performed by injecting Regadenoson 0.4 mg IV push followed by the intra venous injection of 32.8 mCi of Tc-99m Sestamibi. Time of stress injection: 1030 Time of stress imagin Administration Route: IV Administration Site: Left AC Gated Stress SPECT was performed 60 minutes after stress injection. The images were gated to evaluate regional wall motion and calculate left ventricular ejection fracti on. Nuclear Conclusion Nuclear Findings: negative for ischemia lvef 67% normal perfusions can no ischemia
--- NOTE | 2025-02-22 11:03 | DVHPN2 ---
Consult Progress Note Date Seen: Feb 22, 2025 Subjective Review of Systems: CVS:Normal, RESPIRATORY:Normal, NEURO:Normal Objective vital signs Vital Sign Date Time Temp Pulse Resp B/P (MAP) Pulse Ox O2 Delivery O2 Flow Rate FiO2 02/22/25 09:00 96.7 75 16 129/84 (99) 91 96.7 02/22/25 07:47 Room Air* 0 21 Total Intake and Output 02/21/25 02/21/25 02/22/25 15:00 23:00 07:00 Intake Total 600 ml 400 ml Balance 600 ml 400 ml medications Current Medications Medications Dose Ordered Sig/Nixon Route Start Time Stop Time Status Last Admin Dose Admin Aspirin 81 mg DAILY PO 02/18/25 10:00 02/22/25 08:56 81 MG Atorvastatin Calcium 40 mg HS PO 02/17/25 22:00 02/21/25 21:56 40 MG Morphine Sulfate 2 mg Q30MP PRN IV 02/17/25 16:30 UNV Acetaminophen 650 mg Q6HP PRN PO 02/17/25 16:30 02/21/25 20:00 650 MG Lorazepam 0.5 mg Q6HP PRN PO 02/17/25 16:30 02/22/25 08:56 0.5 MG Nitroglycerin 0.4 mg Q5MINP PRN SL 02/17/25 16:30 UNV Ondansetron HCl 4 mg Q4HP PRN IV 02/17/25 16:30 02/22/25 08:57 4 MG Nitroglycerin 0.4 mg Q5MINP PRN SL 02/17/25 16:30 Morphine Sulfate 2 mg Q30M PRN IV 02/17/25 16:30 UNV Tolterodine Tartrate 1 mg BID PO 02/17/25 22:00 02/22/25 08:56 1 MG Losartan Potassium 50 mg DAILY PO 02/18/25 10:00 02/22/25 08:57 50 MG Hydrochlorothiazide 12.5 mg DAILY PO 02/18/25 10:00 02/22/25 08:56 12.5 MG Pantoprazole Sodium 40 mg DAILY IV 02/18/25 10:00 02/22/25 08:56 40 MG Enoxaparin Sodium 40 mg DAILY SC 02/18/25 10:00 02/22/25 08:57 40 MG Acetaminophen/ Hydrocodone Bitart 1 tab Q6HP PRN PO 02/18/25 14:20 02/22/25 06:31 1 TAB Docusate Sodium 100 mg BIDPRN PRN PO 02/21/25 20:30 02/21/25 21:56 100 MG Examination: LUNGS:Normal, CVS:Normal, NEURO:Normal laboratory and microbiology Laboratory Tests 02/18/25 04:34 Test 02/18/25 04:34 Range/Units Serum Glucose 90 74-106 mg/dL Problem List/Assessment/Plan Problem List/Assessment/Plan (Dr. Leon) * Chest Pain - non-cardiac. Troponins negative. EKG negative for acute ST abnormalities. Given history of HLD, HTN, and significant family cardiac history she underwent a Génesis stress test deemed to be negative for ischemia. Echocardiogram showing normal LVEF 60%, no significant valvular structural abnormalities noted. * Palpitations - continue telemetry monitoring. Recommend outpatient cardiology follow up for event monitoring. * HTN - BP stable on current regimen, continue monitoring. There is no further cardiac work-up indicated at this time. Kindly call with any questions or concerns. Signing off. Thank you for allowing us to participate in the management of this patient. This medical document was created using an electronic medical record system with voice recognition software and computerized dictation system. Although this document has been carefully reviewed, there might still be some phonetic and typographical errors. Occasional wrong-word or ``sound-alike substitutions may have occurred due to the inherent limitations of voice recognition software. These areas are purely typographical due to imperfections of the software programs and do not reflect any compromise in the patient's medical care. Please read the chart carefully and recognize, using context, where these substitutions have occurred. Plan discussed with: Patient, Other Date of Service: Feb 22, 2025 Billing Provider: ARABELLA MARKS Cardiology Common Codes: [id number] INP/OBS CARE(Mod) ARABELLA MARKS Feb 22, 2025 11:03
--- NOTE | 2025-02-22 11:50 | ECG ---
[facility] Test Date: 2025-02-18 Test Time: 04:29:00 Pat Name: BAMBI SHEPPARD Department: Room: [facility]6T B Gender: F Spectroscopist: meghana : 1965 Requested By: YADIRA JORDAN Order Number: [id number] Reading MD: Esau Leon Measurements Intervals [place] Rate: 83 P: 46 [place]: 166 QRS: 36 QRSD: 81 T: 42 QT: 355 QTc: 418 Interpretive Statements Sinus rhythm Low voltage, precordial leads Electronically Signed On 02-23-2025 14:29:40 PDT by Esau Leon Please click the below link to view image of tracing.
--- NOTE | 2025-02-22 13:53 | DVHDS2 ---
Discharge Summary Date of Admission Feb 17, 2025 at 16:19 Date of Discharge: Feb 22, 2025 Labs/Diagnostic Data: Laboratory Results Test 02/18/25 04:34 02/17/25 17:00 02/17/25 14:27 02/17/25 11:32 White Blood Count 4.8 10^3/uL (4.4-10.8) Red Blood Count 5.24 10^6/uL (4.0-5.20) Hemoglobin 15.3 g/dL (12.2-16.2) Hematocrit 43.6 % (36.0-46.0) Mean Corpuscular Volume 83.1 fL (80.0-100.0) Mean Corpuscular Hemoglobin 29.2 pg (28.0-32.0) Mean Corpuscular Hemoglobin Concent 35.1 g/dL (32.0-36.0) Red Cell Distribution Width 14.3 % (11.8-14.3) Platelet Count 181 10^3/uL (140-450) Mean Platelet Volume 10.1 fL (6.9-10.8) Neutrophils (%) (Auto) 60.8 % (37.0-80.0) Lymphocytes (%) (Auto) 29.5 % (10.0-50.0) Monocytes (%) (Auto) 8.1 % (0.0-12.0) Eosinophils (%) (Auto) 1.1 % (0.0-7.0) Basophils (%) (Auto) 0.5 % (0.0-2.0) Neutrophils # (Auto) 2.9 10 ^3/uL (1.6-8.6) Lymphocytes # (Auto) 1.4 10 ^3/uL (0.4-5.4) Monocytes # (Auto) 0.4 10 ^3/uL (0-1.3) Eosinophils # (Auto) 0.1 10 ^3/uL (0-0.8) Basophils # (Auto) 0 10 ^3/uL (0-0.2) Nucleated Red Blood Cells 0.1 % Sodium Level 140 mmol/L (136-145) Potassium Level 3.7 mmol/L (3.5-5.1) Chloride Level 103 mmol/L (98-107) Carbon Dioxide Level 27 mmol/L (20-31) Anion Gap 10 (5-15) Blood Urea Nitrogen 25 mg/dL (9-23) Creatinine 1.17 mg/dL (0.550-1.02) Glomerular Filtration Rate Calc 54 mL/min (>90) BUN/Creatinine Ratio 21.4 (10.0-20.0) Serum Glucose 90 mg/dL (74-106) Calcium Level 9.4 mg/dL (8.7-10.4) Magnesium Level 2.2 mg/dL (1.6-2.6) Troponin I High Sensitivity < 3 ng/L (</=34) Triglycerides Level 83 mg/dL (< 150) Cholesterol Level 167 mg/dL (< 200) LDL Cholesterol 92 mg/dL (< 100) HDL Cholesterol 64 mg/dL (40-59) Urine Color Yellow (Yellow) Urine Clarity Turbid (Clear) Urine pH 5.5 (5.0-9.0) Urine Specific [place] 1.026 (1.001-1.035) Urine Protein Trace (Negative) Urine Ketones Negative (Negative) Urine Blood Negative /uL (Negative) Urine Nitrite Negative (Negative) Urine Bilirubin Negative (Negative) Urine Urobilinogen Normal mg/dL (Negative) Urine Leukocyte Esterase 3+ /uL (Negative) Urine RBC 4 /hpf (0 - 4) Urine Microscopic WBC 33 /HPF (0-5) Urine Squamous Epithelial Cells Few /hpf (<5) Urine Bacteria Few /hpf (None Seen) Urine Hyaline Casts Many /lpf (0 - 2) Urine Mucus Few (None Seen) Urine Glucose Normal mg/dL (Normal) Urine Opiates Screen Neg (NEGATIVE) Urine Fentanyl Screen Pos (NEGATIVE) Urine Barbiturates Screen Neg (NEGATIVE) Urine Phencyclidine Screen Neg (NEGATIVE) Urine Amphetamines Screen Neg (NEGATIVE) Urine Benzodiazepines Screen Neg (NEGATIVE) Urine Cocaine Screen Neg (NEGATIVE) Urine Cannabinoids Screen Neg (NEGATIVE) Thyroid Stimulating Hormone (TSH) 4.01 uIU/mL (0.55-4.78) Free Thyroxine (T4) Calculated 1.48 ng/dL (0.89-1.76) Hemoglobin A1c 5.5 % A1C (<5.7) Test 02/17/25 11:23 D-Dimer, Quantitative < 0.19 mg/L FEU (0.0-0.49) Total Bilirubin 1.0 mg/dL (0.2-1.0) Aspartate Amino Transferase (AST) 22 U/L (13-40) Alanine Aminotransferase (ALT) 32 U/L (7-40) Alkaline Phosphatase 91 U/L (46-116) Total Protein 7.8 g/dL (5.7-8.2) Albumin 4.9 g/dL (3.2-4.8) Other Laboratory Tests 02/18/25 04:34 Brief Hx & Hospital Course: 59-year-old female with a known history of hypertension, dyslipidemia, morbid obesity classII, who initially presented to the hospital with the chest pain on and off for last few days , eventually admitted for ruling out acute [place] patient's troponins were negative. Patient's chest pain is probably noncardiac. Patient underwent Lexiscan stress test which was negative for any ischemia patient is being discharged under stable condition. Patient does have morbid obesity classIII on diet weight reduction and exercise counseling has been discussed. Condition at Discharge: Stable Final Diagnosis/Problems List 59-year-old female with a known history of hypertension, dyslipidemia, morbid obesity classII, who initially presented to the hospital with the chest pain on and off for last few days found to have 1. Chest pain ruled out [place] 2. Hypertension controlled 3. Dyslipidemia 4. Morbid obesity classII Discharge Disposition: Home SNF Discharge Will this Physician continue t: No Discharge Instruct/Medications Diet: Cardiac 2g Na,low cholest Activity: No Restrictions, As Tolerated Follow Up/Referral: Follow up with the PCP in one week Medications: Resume home medications. Continued Medications: Atorvastatin Calcium (Atorvastatin Calcium) 40 Mg Tab 1 TAB PO HS, #30 TAB 5 Refills Hydrocodone-Acetaminophen (Hydrocodone Bitartrate/AC 5-325 mg) 1 Tab Tab 1 TAB PO Q6HP PRN for PAIN SCALE 7 THRU 10, TAB Losartan Potassium (Losartan Potassium) 50 Mg Tab 50 MG PO DAILY for 30 Days, MG Tolterodine Tartrate (Tolterodine Tartrate ER) 2 Mg Cap 1 CAP PO DAILY Discontinued Medications: Ibuprofen Micronized (Motrin) 800 Mg Tb Scheduled Atorvastatin Calcium (Atorvastatin Calcium), 1 TAB PO HS, (Reported) Losartan Potassium (Losartan Potassium), 50 MG PO DAILY, (Reported) Tolterodine Tartrate (Tolterodine Tartrate ER), 1 CAP PO DAILY, (Reported) Scheduled PRN Hydrocodone-Acetaminophen (Hydrocodone Bitartrate/AC 5-325 mg), 1 TAB PO Q6HP PRN for PAIN SCALE 7 THRU 10, (Reported) Discontinued Medications Ibuprofen Micronized (Motrin), (Reported) Discharge Statement: "Patient was advised to return to the ER or call 911 if any headaches, dizziness, shortness of breath, chest pain, abdominal pain, bleeding, fevers, or worsening of medical condition. Patient was counseled about treatment plan, medications, possible side effects, patientverbalized understanding. All questions were answered to the best of my ability. This discharge took greater then 30 minutes in planning, reviewing documentation, counseling the patient, and discussing with other team members." ASSESSMENT ASSESSMENT Assessment 59-year-old female with a known history of hypertension, dyslipidemia, morbid obesity classII, who initially presented to the hospital with the chest pain on and off for last few days found to have 1. Chest pain ruled out [place] 2. Hypertension controlled 3. Dyslipidemia 4. Morbid obesity classII Date of Service: Feb 22, 2025 Billing Provider: BLAINE SAMS MD Common Visit Codes: [id number]-BKC/OBS DISCH DAY >30min BLAINE SAMS MD Feb 22, 2025 13:53
== END 2025-02-22 15:31 | disposition home or self-care (01) | DRG 203 ==
LOC: ER 10:58 → OVERFLOW 16:19 → TELE-WESTW 23:16
PROVIDERS: ADMIT Internal Medicine; ATTEND Internal Medicine
DX: M94.0 Chondrocostal junction syndrome [Tietze] (principal); N17.9 Acute kidney failure, unspecified; E66.01 Morbid (severe) obesity due to excess calories; I10 Essential (primary) hypertension; E78.5 Hyperlipidemia, unspecified; Z82.49 Family history of ischemic heart disease and other diseases of the circulatory system; Z83.3 Family history of diabetes mellitus; Z88.5 Allergy status to narcotic agent; Z90.49 Acquired absence of other specified parts of digestive tract; Z79.1 Long term (current) use of non-steroidal anti-inflammatories (NSAID); Z79.899 Other long term (current) drug therapy; Z98.891 History of uterine scar from previous surgery; Z68.38 Body mass index [BMI] 38.0-38.9, adult
CPT/HCPCS: 36415; 71045; 78452; 80048; 80053; 80061; 80307; 81001; 83036; 83735; 84439; 84443; 84484; 85025; 85379; 93005; 93017; 93306; G0378; J2405; J2470

== ENCOUNTER 2025-04-30 17:35 | Emergency (ER) | payer MEDICAID ==
[~2025-04-30] VITALS: Ht 180.3 cm; Wt 129.4 kg
[~2025-04-30 17:35] MED LIST changes: +ATOR40TA52 PO; +HYDR-4902 PO; -IBU800T; +LOSA-534 PO; +TOLT1CAP26 PO
[2025-04-30 17:38] VITALS: BP 163/94; RESP 18; TEMP 97.6; O2SAT 96
[2025-04-30 17:42] VITALS: PULSE 96
--- NOTE | 2025-05-03 10:00 | ECG ---
[facility] Test Date: 2025-04-30 Test Time: 17:42:25 Pat Name: BAMBI SHEPPARD Department: Room: Gender: F Meter Calibrator: DR LEY: 1965 Requested By: JC BEAL Order Number: [id number] Reading MD: Measurements Intervals Cope Rate: 96 P: 62 [place]: 156 QRS: 39 QRSD: 83 T: 42 QT: 337 QTc: 426 Interpretive Statements Sinus rhythm Low voltage, precordial leads Please click the below link to view image of tracing.
== END 2025-04-30 19:29 | disposition left against medical advice (07) ==
LOC: ER 17:35
DX: R07.9 Chest pain, unspecified (principal); Z53.21 Procedure and treatment not carried out due to patient leaving prior to being seen by health care provider
CPT/HCPCS: 93005

== ENCOUNTER 2025-05-02 11:39 | Emergency (ER) | payer MEDICAID ==
[~2025-05-02] VITALS: Ht 180.3 cm; Wt 130.0 kg
--- NOTE | 2025-05-02 12:25 | ED.PDOC ---
Musculoskeletal HPI Comments 60 year old female with PMHx HTN presents to the ED with a chief complaint of LT leg pain onset 4 days. Patient states she went to [facility] today due to LT leg pain, swelling for the past 4 days, has been resting and elevating leg with no improvement of symptoms. Patient states she has surgery scheduled for Thursday. Patient was advised to go to ED to rule out DVT. Denies shortness of breath, chest pain, dizziness, headache, fever, chills. No other symptoms or modifying factors present at this time. Chief Complaint: Lower Extremity Time Seen by MD: 12:15 Primary Care Provider: THEA Reviewed Notes: Medications, Allergies Allergies: Coded Allergies: Morphine (Verified Allergy, Severe, 03/30/15) SEVERE RASH Home Meds Reported Medications Hydrocodone-Acetaminophen (Hydrocodone Bitartrate/AC 5-325 mg) 1 Tab Tab, 1 TAB PO Q6HP PRN for PAIN SCALE 7 THRU 10, TAB 02/18/25 Atorvastatin Calcium (ATORVASTATIN CALCIUM) 40 Mg Tab, 1 TAB PO HS, #30 TAB 5 Refills 02/18/25 Losartan Potassium (Losartan Potassium) 50 Mg Tab, 50 MG PO DAILY for 30 Days, MG 02/18/25 Tolterodine Tartrate (Tolterodine Tartrate ER) 2 Mg Cap, 1 CAP PO DAILY 02/17/25 Information Source: Patient Mode of Arrival: Ambulatory Location: Left Extremity Location: Leg Timing: Days Prehospital treatment: None Severity: Moderate Able to Move Extremity: Yes Bear Weight: Limited Pain: Moderate Associated signs and symptoms: Swelling, Leg pain Past Medical History PAST MEDICAL HISTORY: Arthritis, HTN Surgical History: Cholecystectomy, [employer] History: No Pertinent [employer] History Family History Family History: No family hx of Heart margarito Social History Smoker: Non-Smoker Alcohol: Occasionally Drugs: Denies Drug Use Lives In: Home Constitutional: denies: chills, diaphoresis, fatigue, fever, malaise, sweats, weakness, others EENTM: denies: blurred vision, double vision, ear bleeding, ear discharge, ear drainage, ear pain, ear ringing, eye pain, eye redness, hearing loss, mouth pain, mouth swelling, nasal discharge, nose bleeding, nose congestion, nose pain, photophobia, tearing, throat pain, throat swelling, voice changes, others Respiratory: denies: cough, hemoptysis, orthopnea, SOB at rest, shortness of breath, SOB with excertion, stridor, wheezing, others Cardiovascular: denies: chest pain, dizzy spells, diaphoresis, Dyspnea on exertion, edema, irregular heart beat, left arm pain, lightheadedness, palpitations, PND, syncope, others Gastrointestinal: denies: abdomen distended, abdominal pain, blood streaked bowels, constipated, diarrhea, dysphagia, difficulty swallowing, hematemesis, melena, nausea, poor appetite, poor fluid intake, rectal bleeding, rectal pain, vomiting, others Genitourinary: denies: abnormal vagina bleeding, burning, dyspareunia, dysuria, flank pain, frequency, hematuria, incontinence, pain, , vagina discharge, urgency, others Neurological: denies: dizziness, fainting, headache, left sided numbness, left sided weakness, numbness, paresthesia, pre-existing deficit, right sided numbness, right sided weakness, seizure, speech problems, tingling, tremors, weakness, others Musculoskeletal: reports: others (LT leg pain, edema); denies: back pain, gout, joint pain, joint swelling, muscle pain, muscle stiffness, neck pain Integumetry: denies: bruises, change in color, change in hair/nails, dryness, laceration, lesions, lumps, rash, wounds, others Allergic/Immunocompromised: denies: Difficulty Healing, Frequent Infections, Hives, Itching, others Hematologic/Lymphatic: denies: anemia, blood clots, easy bleeding, easy bruising, swollen glands, others Endocrine: denies: excessive hunger, excessive sweating, excessive thirst, excessive urination, flushing, intolerance to cold, intolerance to heat, unexplained weight gain, unexplained weight loss, others Psychiatric: denies: anxiety, bipolar disorder, depression, hopeless, panic disorder, schizophrenia, sleepless, suicidal, others All Other Systems: Reviewed and Negative Physical Exam General Appearance: Normal HEENT: Normal ENT Inspection, Pharynx Normal, TMs Normal Neck: Full Range of Motion, Non-Tender, Normal, Normal Inspection Respiratory: Chest Non-Tender, Lungs Clear, No Accessory Muscle Use, No Respiratory Distress, Normal Breath Sounds Cardiovascular: No Edema, No JVD, No Murmur, No Gallop, Normal Peripheral Pulses, Regular Rate/Rhythm Breast Exam: Deferred Gastrointestinal: No Organomegaly, Non Tender, No Pulsatile Mass, Normal Bowel Sounds, Soft Genitalia: Deferred Pelvic: Deferred Rectal: Deferred Extremities: No calf tenderness, Normal capillary refill, Normal inspection, Normal range of motion, Non-tender, No pedal edema Musculoskeletal : Apperance: Normal Neurologic: 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 Was a procedure done?: No Differential Diagnosis EXT Differential Diagnosis: Deep Vein Thrombosis X-Ray, Labs, Meds, VS Vital Signs Date Time Temp Pulse Resp B/P (MAP) Pulse Ox O2 Delivery O2 Flow Rate FiO2 05/02/25 11:43 97.7 97 18 176/96 95 97.7 Lab Test 05/02/25 12:42 Range/Units White Blood Count 5.6 4.4-10.8 10^3/uL Red Blood Count 4.88 4.0-5.20 10^6/uL Hemoglobin 14.0 12.2-16.2 g/dL Hematocrit 41.5 36.0-46.0 % Mean Corpuscular Volume 85.0 80.0-100.0 fL Mean Corpuscular Hemoglobin 28.7 28.0-32.0 pg Mean Corpuscular Hemoglobin Concent 33.8 32.0-36.0 g/dL Red Cell Distribution Width 15.4 H 11.8-14.3 % Platelet Count 223 140-450 10^3/uL Mean Platelet Volume 9.3 6.9-10.8 fL Neutrophils (%) (Auto) 64.6 37.0-80.0 % Lymphocytes (%) (Auto) 28.1 10.0-50.0 % Monocytes (%) (Auto) 5.4 0.0-12.0 % Eosinophils (%) (Auto) 1.2 0.0-7.0 % Basophils (%) (Auto) 0.7 0.0-2.0 % Neutrophils # (Auto) 3.6 1.6-8.6 10 ^3/uL Lymphocytes # (Auto) 1.6 0.4-5.4 10 ^3/uL Monocytes # (Auto) 0.3 0-1.3 10 ^3/uL Eosinophils # (Auto) 0.1 0-0.8 10 ^3/uL Basophils # (Auto) 0 0-0.2 10 ^3/uL Nucleated Red Blood Cells 0.0 % D-Dimer, Quantitative 0.49 0.0-0.49 mg/L FEU Sodium Level 145 136-145 mmol/L Potassium Level 4.1 3.5-5.1 mmol/L Chloride Level 107 98-107 mmol/L Carbon Dioxide Level 25 20-31 mmol/L Anion Gap 13 5-15 Blood Urea Nitrogen 13 9-23 mg/dL Creatinine 0.85 0.550-1.02 mg/dL Glomerular Filtration Rate Calc 79 >90 mL/min BUN/Creatinine Ratio 15.3 10.0-20.0 Serum Glucose 117 H 74-106 mg/dL Calcium Level 9.2 8.7-10.4 mg/dL Time of 1ST Reevaluation: 12:45 Reevaluation 1ST: Unchanged Patient Education/Counseling: Diagnosis, Treatment, Prognosis Family Education/Counseling: No Family Present Departure 1 Departure Time of Disposition: 13:59 (Patient's workup was benign. Patient is not have a DVT. Patient's labs are benign. We will discharge patient home with outpatient for) Impression: Primary Impression: Left knee pain Disposition: HOME / SELF CARE / HOMELESS Condition: Stable Additional Instructions: Your workup today was benign. You can take Tylenol or Motrin as needed for pain. You should follow up with your regular doctor within 1 week. You should stay well rested and well hydrated. If your symptoms worsen or you have any other concerns please return to the emergency room. Discharged With: Self Critical Care Note Critical Care Time?: No Stability Stability form required: No Heart Score Heart Score: Heart Score Response (Comments) Value History N/A 0 EKG N/A 0 Age N/A 0 Risk Factors N/A 0 Troponin N/A 0 Total 0 I personally scribed for NENA RIVERA MD ([email or web address]) on 05/02/25 at 12:25. Electronically submitted by Jen Pastrana ([email or web address]). NENA RIVERA MD May 02, 2025 12:25
[2025-05-02 12:57] LABS: Hematocrit 41.5 % (36.0-46.0); Hemoglobin 14.0 g/dL (12.2-16.2); Mean Corpuscular Hemoglobin 28.7 pg (28.0-32.0); Mean Corpuscular Volume 85.0 fL (80.0-100.0); Nucleated Red Blood Cells % 0.0 %
[2025-05-02 13:10] LABS: Chloride 107 mmol/L (98-107); Potassium 4.1 mmol/L (3.5-5.1)
[2025-05-02 13:11] LABS: Anion Gap 13 (5-15); Carbon Dioxide 25 mmol/L (20-31)
[2025-05-02 13:12] LABS: Calcium 9.2 mg/dL (8.7-10.4)
[2025-05-02 13:15] LABS: Sodium 145 mmol/L (136-145)
[2025-05-02 13:16] LABS: BUN/Creatinine Ratio 15.3 (10.0-20.0); Blood Urea Nitrogen 13 mg/dL (9-23)
[2025-05-02 13:17] LABS: Glucose 117 mg/dL (74-106)
--- NOTE | 2025-05-02 13:35 | DVH ---
Left lower extremity venous duplex Clinical History: Left leg swelling Comparison: None Technique: Duplex Doppler evaluation of the deep venous system of the left lower extremity from the common femoral vein to the popliteal vein including color Doppler and spectral/pulsed waveform analysis was performed. Findings: The common femoral vein demonstrates appropriate compressibility and waveform variability. There is compressibility/patency of the great saphenous vein at the proximal thigh. The femoral vein demonstrates appropriate compressibility and waveform variability. The deep femoral vein demonstrates appropriate compressibility and waveform variability. The popliteal vein demonstrates appropriate compressibility and waveform variability. There is normal compressibility at the tibioperoneal trunk. Impression: No left femoropopliteal venous thrombosis. Small knee joint effusion.
[2025-05-02] MEDS: KETOROLAC TROMETH 30 MG/ML 1ML VIAL IM ONE (14:00)
[2025-05-02 15:32] VITALS: BP 160/90; PULSE 70; RESP 16; TEMP 97.9; O2SAT 95
== END 2025-05-02 15:33 | disposition home or self-care (01) ==
LOC: ER 11:39
DX: M25.562 Pain in left knee (principal); I10 Essential (primary) hypertension; M19.90 Unspecified osteoarthritis, unspecified site; Z79.899 Other long term (current) drug therapy; Z90.49 Acquired absence of other specified parts of digestive tract; Z88.5 Allergy status to narcotic agent
CPT/HCPCS: 36415; 80048; 85025; 85379; 93971; 96372; 99285; J1885